=== PATIENT | male | born 1955 | race Caucasian/White ===

== ENCOUNTER 2018-08-01 08:05 | Day surgery (SDC) | payer BC ==
[2018-07-31 14:46] VITALS: BMI 34.9
[2018-08-01 09:58] VITALS: TEMP 98.1
[2018-08-01 14:25] VITALS: BP 128/78; PULSE 61
--- NOTE | 2018-08-02 16:09 | PATH ---
Surgical Pathology Report Patient Name: KE CROWDER [facility]. Rec. #: [id number] /Age/Gender: 1955 (Age: 63) / M Account: [id number] Location: [facility]-ENDOSCOPY Taken: 08/01/2018 Received: 08/01/2018 Reported: 08/02/2018 Physicians: Wali Peralta M.D. Specimen(s) Received A: BX ANTRUM B: BX TRANSVERSE COLON Clinical History Nausea, rectal bleeding Postoperative diagnosis: Normal EGD, transverse colon polyp Final Diagnosis A. ANTRUM, BIOPSY: GASTRIC MUCOSAL WITH MILD CHRONIC GASTRITIS. IMMUNOSTAIN FOR H. PYLORI IS NEGATIVE. NEGATIVE FOR INTESTINAL METAPLASIA. B. TRANSVERSE COLON POLYP, POLYPECTOMY: TUBULAR ADENOMA. Electronically Signed Maggy Mclean M.D. Gross Description A. Received in formalin, labeled "BX antrum" are 2 bryan, irregular portions of soft tissue measuring 0.2 and 0.3 cm. in greatest dimension. The specimens are submitted in toto in one cassette. B. Received in formalin, labeled "BX transverse colon polyp" are 3 bryan, irregular portions of soft tissue measuring 0.2 cm. in greatest dimension. The specimens are submitted in toto in [one] cassette. MLSZ/08/01/2018 sanbuster/08/01/2018
== END 2018-08-01 11:00 | disposition home or self-care (01) ==
LOC: JASU-ENDO 08:05
PROVIDERS: ATTEND Internal Medicine Gastroenterology
PROC: 0DB68ZX Excision of Stomach, Via Natural or Artificial Opening Endoscopic, Diagnostic (ICD-10-PCS; 2018-08-01)
PROC: 0DBL8ZX Excision of Transverse Colon, Via Natural or Artificial Opening Endoscopic, Diagnostic (ICD-10-PCS; principal; 2018-08-01 09:30)
DX: Z12.11 Encounter for screening for malignant neoplasm of colon (principal); K63.5 Polyp of colon; R11.0 Nausea
CPT/HCPCS: 88305-TC; 88342-TC

== ENCOUNTER 2024-12-12 10:55 | Emergency (ER) | payer BC ==
[2024-12-12 11:32] VITALS: BP 150/75; PULSE 66; RESP 18; TEMP 99.1; BMI 34.0
[2024-12-12 12:05] LABS: ABSOLUTE IMMATURE GRANULOCYTES 0.01 x10^3/uL (0.0-0.031); BASOPHILS # 0.04 x10^3/uL (0.01-0.08); EOSINOPHIL % 3.4 % (0.8-7.0); EOSINOPHILS # 0.14 x10^3/uL (0.04-0.54); HEMATOCRIT 43.6 % (40.1-51.0); HEMOGLOBIN 15.1 g/dL (13.7-17.5); MCHC 34.6 g/dl (32.3-36.5); MEAN CELL VOLUME 90.5 fl (79.0-92.2); MONOCYTE # 0.37 x10^3/uL (0.30-0.82); MONOCYTE % 8.9 % (5.3-12.2); PLATELET COUNT 192 x10^3/uL (163-337); RDW 11.7 % (12.2-16.4)
[2024-12-12 12:08] LABS: ALBUMIN 4.4 g/dl (3.4-5.0); ALK PHOS 57 U/L (45-117); ANION GAP 7 mmol/L (4-13); CALCIUM 9.8 mg/dl (8.5-10.1); CHLORIDE 102 mmol/L (98-107); CO2 28 mmol/L (21-32); CREATININE 1.1 mg/dl (0.6-1.3); GLUCOSE,RANDOM 95 mg/dl (74-106); POTASSIUM 4.2 mmol/L (3.5-5.1); SGOT/AST 16 U/L (15-37); SGPT/ALT 21 U/L (7-52); SODIUM 137 mmol/L (136-145); TOT PROT 6.8 g/dl (6.4-8.2)
== END 2024-12-12 15:15 | disposition home or self-care (01) ==
LOC: FER 10:55
DX: R07.2 Precordial pain (principal); R20.2 Paresthesia of skin
CPT/HCPCS: 36415; 71045-TC-FY; 71275-TC; 74174-TC; 80053; 84484; 85025; 93005; 99285-25; Q9967